=== PATIENT | male | born 1965 | race Caucasian/White ===

== ENCOUNTER 2017-01-01 11:10 | Day surgery (SDC) | payer OTHER ==
[~2017-01-01 11:10] MED LIST: RINGERS SOLUTION,LACTATED 1,000 ML IV PRN
--- OUTSIDE RECORDS SUMMARY | 2017-01-01 11:14 | XMS REPORT | Continuity of Care Document ---
:1965 Author Organization [facility] ([facility]) Address [address] [place] [address] Phone [phone] Care Team Providers Name Role Phone Kai Garcia Primary Care Provider [phone] Source Comments This disclosure is being made pursuant to the Care Everywhere program, applicable federal and state laws, and may not contain all informaitonavailable regarding this patient.[facility] ([facility]) Active Allergies and Adverse Reactions No Active Allergies Current Medications Not on file Active Problems Problem Noted Date Migraine without aura, without mention of intractable migraine without 2000 mention of status migrainosus Social History Tobacco Use Types Packs/Day Years Used Date Never Assessed Last Filed Vital Signs Vital Sign Reading Time Taken Blood Pressure - - Pulse - - Temperature - - Respiratory Rate - - Height 1.76 m (5' 9.29") 05/09/2001 3:24 PM CDT Weight 96.398 kg (212 lb 8.3 oz) 05/09/2001 3:24 PM CDT Body Mass Index 31.12 05/09/2001 3:24 PM CDT Oxygen Saturation - - Plan of Care Health Maintenance Due Date Last Done Comments Hepatitis B Vaccine (1 of 3 - Primary Series) 1965 Tdap Vaccine 1977 Lipid Disorder Screening 1984 MMR Vaccine 1984 Td Vaccine 1984 Influenza Vaccine: Seasonal (#1) 06/05/2016 Colonoscopy 08/22/2016 Prostate Cancer Screening 2016 Results from Last 3 Months Not on file
[2017-01-01] MEDS ORDERED: RINGERS SOLUTION,LACTATED 1,000 ML IV ONE (11:51)
[2017-01-01] MEDS ORDERED: KETOROLAC TROMETHAMINE 30 MG/ML VIAL IV ONE (12:15)
[2017-01-01 14:08] VITALS: BP 132/84
--- NOTE | 2017-01-01 14:25 | OR ---
Operative Report - Dictated Report Narrative: OPERATIVE REPORT DATE OF OPERATION: 01/01/2017 PREOPERATIVE DIAGNOSIS: No prior dedicated colon studies POSTOPERATIVE DIAGNOSIS: 4 mm rectal polyp (pathology pending) OPERATION: Colonoscopy with hot biopsy forceps polypectomy in the rectum SURGEON: Donato Negron MD ANESTHESIA: ANIYA Ann CRNA INDICATIONS FOR PROCEDURE: The patient is a 51-year-old male referred for initial colon screening by Dr. Garcia. There is no family history of colon cancer. The patient is currently asymptomatic FINDINGS: 4 mm rectal polyp (pathology pending). Otherwise normal colonoscopy to the cecum NARRATIVE OF PROCEDURE: The patient was identified in the holding area, and prior to the administration of anesthetic, a multidisciplinary timeout was observed. With the patient in the left lateral position and after the administration of intravenous sedation, the perineum was inspected. There was no evidence of pilonidal disease or skin breakdown. The external appearance of the anus was normal. Sphincter tone was good. The flexible fiberoptic colonoscope was inserted into the rectum which was insufflated with air. There was a 4 mm rectal polyp. This was biopsied and then thoroughly destroyed with electrocautery. The site was seen to be complete and hemostatic. The rectal mucosa and submucosal vascular pattern otherwise appeared normal, the prep was seen to be complete. The scope was advanced through the sigmoid colon, up the descending colon, and around the splenic flexure where the triangular haustral architecture of the transverse colon was seen. The scope was advanced across the transverse colon, around the hepatic flexure to the cecum, where the confluence of tenia and the ileocecal valve were identified. The mucosa at this level appeared normal. The scope was then slowly withdrawn in a circular fashion so that all aspects of colonic mucosa were inspected. The colon was normal in course and caliber. The haustral architecture appeared well preserved throughout with no evidence of external compression. The mucosa and submucosal vascular pattern appeared normal, specifically there was no gross evidence to suggest colitis or inflammatory bowel disease and no AV malformations were seen. No diverticular openings were demonstrated. Aside from the polyp in the rectum, no other polyps were encountered. The scope was gradually withdrawn to the level of the rectum. As much insufflated air as possible was removed. The scope was withdrawn from the patient and the procedure terminated. The patient tolerated the anesthetic and procedure well without complication and was transferred back to the ambulatory surgery area awake and in stable condition. The patient remained stable throughout a period of postoperative observation. He denied abdominal discomfort, was able to tolerate by mouth intake, and was up without assistance. I shared the operative findings with the patient and he was given copies of the photographs which appear in the medical record. He was discharged home with instructions not to engage in hazardous activity today, but may resume normal activity tomorrow, and advance diet as tolerated. He is to continue those medications as listed in the history and physical exam. I made arrangements to contact him with the biopsy reports and will make additional recommendations for treatment and follow-up based upon those results. Reviewed and electronically signed
== END 2017-01-01 11:11 | disposition home or self-care (01) ==
LOC: AMB 11:10
PROVIDERS: ATTEND Surgery
PROC: 0DBP8ZX Excision of Rectum, Via Natural or Artificial Opening Endoscopic, Diagnostic (ICD-10-PCS; principal; 2017-01-01 13:30)
DX: Z12.11 Encounter for screening for malignant neoplasm of colon (principal); D12.8 Benign neoplasm of rectum; K21.9 Gastro-esophageal reflux disease without esophagitis; E78.5 Hyperlipidemia, unspecified; Z68.41 Body mass index [BMI] 40.0-44.9, adult

== ENCOUNTER 2019-11-12 06:59 | Inpatient (IN) ==
--- NOTE | 2019-10-15 12:28 | ANES ---
Anesthesia Pre Procedure Eval HOME MEDICATIONS Metoprolol Succinate [Toprol Xl] 25 mg PO DAILY 12/20/16 [Last Taken Unknown] Gabapentin [Neurontin] 600 mg PO HS 12/29/16 [Last Taken Unknown] rOPINIRole HCL [Requip] 3 mg PO HS 12/29/16 [Last Taken Unknown] atorvastatin 40 mg tablet 40 mg PO HS #30 tab 08/19/19 [Last Taken Unknown] cholecalciferol (vitamin D3) 50,000 unit capsule 50,000 unit PO Q14D #14 cap 08/20/19 [Last Taken Unknown] coenzyme Q10 200 mg capsule 200 mg PO DAILY 09/09/19 [Last Taken Unknown] tramadol 37.5 mg-acetaminophen 325 mg tablet 1 tab PO BID 09/09/19 [Last Taken Unknown] ranitidine HCl 300 mg tablet 300 mg PO HS #30 tab 09/15/19 [Last Taken Unknown] Allergies/Adverse Reactions: Allergies Allergy/AdvReac Type Severity Reaction Status Date / Time No Known Allergies Allergy Verified 10/15/19 08:24 - Planned Procedure Planned Procedure: L Arthroplasty Total Knee Medication List Reviewed:: Yes Allergies Verified: Yes Medical History (Last Reviewed 10/15/19 @ 12:26 by Renato Ann CRNA) Chronic migraine without aura without status migrainosus, not intractable Onset Date: ~2014 Erectile dysfunction due to diseases classified elsewhere Onset Date: ~2014 Excessive daytime sleepiness Onset Date: ~2015 History of gastroesophageal reflux (GERD) Onset Date: Unknown Hyperlipidemia Onset Date: ~2014 Hypogonadotropic hypogonadism Onset Date: ~2014 Left knee pain Onset Date: ~2014 Migraine Onset Date: Unknown Mild concentric left ventricular hypertrophy (LVH) Onset Date: ~2015 trace MR, Echo, [facility], 02/08/16 MARGARETTE (obstructive sleep apnea) Onset Date: ~2015 AHI 71/hr, lowest O2 sat 67%, [facility], 03/08/16. On CPAP RLS (restless legs syndrome) Onset Date: ~2015 Right foot pain Onset Date: ~2014 Sinus tachycardia Onset Date: ~2011 Vitamin D deficiency Onset Date: ~2013 Cerumen impaction Onset Date: ~2014 Surgical History (Last Reviewed 10/15/19 @ 12:26 by Renato Ann CRNA) ANEL Onset Date: 08/25/14 C5-6 History of colonoscopy Onset Date: 01/01/17 Bagan-serrated adenoma. Recheck 3 yrs. Family History (Last Reviewed 10/15/19 @ 12:26 by Renato Ann CRNA) Father Rheumatoid arthritis Irregular heart rhythm bladder issue hyperlipidemia Heart disease Hypercholesterolemia Brother Alive and well Mother Heart issues hyperlipidemia - Family Anesthesia History Family History:: no untoward family reactions to anesthesia - Airway/Neck/Teeth Teeth Condition: intact Neck Exam: limited range of motion Mallampatti Score: 4 Thyromental (T-M) distance: > 6 cm Mandibulo Hyoid distance: > 3 cm - Respiratory Respiratory History: CPAP/BiPAP home use Respiratory Physical: lungs clear Smoking Status: Never smoker Sleep Apnea currently treated: Yes Sleep Apnea by current assessment: Yes - Cardiovascular Cardiac History: hypertension Tolerate Activity: Fair Heart Sounds: S1 & S2, Regular - Gastrointestinal NPO since: instructed npo after mn - Anesthesia Assessment and Plan ASA Class: PS, II Anesthesia Type Plan: Spinal - lt adductor canal block for postop analgesia Planned difficult intubation/equipment available: No
[~2019-11-12 06:59] MED LIST changes: +BUPIVACAINE HCL/EPINEPHRINE 50 ML VIAL IJ ONE; +BUPIVACAINE HCL/PF 10 ML VIAL ONE; +MIDAZOLAM HCL/PF 5 MG/ML VIAL ONE; +MORPHINE SULFATE 15 MG TABLET.SA PO PRN; +PROPOFOL VIAL IV ONE; -RINGERS SOLUTION,LACTATED 1,000 ML IV PRN; +ROPIVACAINE HCL/PF 100 MG, EPINEPHrine 0.2 MG, KETOROLAC TROMETHAMINE 30 MG in NORMAL S... IJ PRN; +TRANEXAMIC ACID 1,000 MG in NORMAL SALINE 100 ML IV PRN; +ceFAZolin SODIUM 1 GM VIAL IV PRN
[2019-11-12] MEDS ORDERED: ceFAZolin SODIUM 1 GM VIAL ONE (07:06)
[2019-11-12] MEDS ORDERED: ISOPROPYL ALCOHOL 480 APPL BTL MC ONE (07:08)
[2019-11-12] MEDS: RINGER'S SOLUTION,LACTATED 1,000 ML IV PRN ×4 (07:51→11:46)
[2019-11-12] MEDS ORDERED: ONDANSETRON HCL/PF 2 MG/ML VIAL ONE (09:58)
[2019-11-12] MEDS ORDERED: diphenhydrAMINE HCL 50 MG/ML VIAL IV PRN (10:05)
[2019-11-12] MEDS ORDERED: ACETAMINOPHEN 500 MG TABLET PO PRN (10:05)
[2019-11-12] MEDS ORDERED: MAGNESIUM HYDROXIDE 30 ML UDC PO PRN (10:05)
[2019-11-12] MEDS ORDERED: ONDANSETRON HCL/PF 2 MG/ML VIAL IV PRN (10:05)
[2019-11-12] MEDS ORDERED: DEXTROSE 5%-LACTATED RINGERS 1,000 ML IV PRN (10:05)
[2019-11-12] MEDS ORDERED: MAG HYDROX/ALUMINUM HYD/SIMETH 30 ML UDC PO PRN (10:05)
[2019-11-12] MEDS ORDERED: ZOLPIDEM TARTRATE 5 MG TABLET PO PRN (10:05)
--- NOTE | 2019-11-12 10:09 | OR ---
Operative Report - Dictated Report Narrative: Date: 11/12/2019 Preoperative diagnosis: Left knee degenerative joint disease. Postoperative diagnosis: Left knee degenerative joint disease. Procedure: Left total knee arthroplasty. Surgeon: Luis Marie M.D. Explosive Ordnance Disposal Technician: Isaak Magdaleno PA-C (provided and essential set of skilled, educated hands that assisted with transfer, positioning, prepping, draping, manipulation, retraction, placement of jigs, injection, insertion of implants, irrigation, closure wounds, and dressings all of which could not be performed by the available surgical crew) Anesthesia: Spinal with regional block and local periarticular joint injection. Complications: None Specimens: Bone. Estimated blood loss: Minimal. Tourniquet time: 90 Minutes at 325 millimeters of mercury. Retained implants: Depuy Attune size 6 left lugged cemented posterior stabilized femoral component. Size 6 fixed-bearing cemented tibial platform. 6 by 6 millimeter posterior stabilized cross-linked tibial insert. 38 millimeter medialized patella button. Indications: Mr. Jackson is a 54-year-old gentleman who has had longstanding left knee pain and arthrosis. This patient was followed in my clinic for period of time with significant complaints of left knee pain consistent with arthritic changes. He had failed conservative measures including, but not limited to, activity modification, passage of time, medications, and other conservative measures. Patient wished to proceed with surgical treatment. The risks, benefits, and alternatives were discussed in clinic. The risks of , blood clots, bleeding, infection, nerve/tendon blood vessel/ injury, malposition of components, intraoperative fracture, postoperative limited range of motion, persistent pain, failure of components, and need for additional procedures. Patient wished to proceed consent was obtained after answering all questions. Procedure: After marking the correct extremity on the floor, the patient was taken to the operating room. A timeout was performed. IV antibiotics consisting of Ancef were administered prior to the procedure. A regional followed by spinal anesthetic was induced by anesthesia, per my request, on the operative table with all bony prominences well-padded. Pak catheter was placed, and a bump was placed under the operative side buttock. SCDs and NICHOLAS hose were utilized on the nonoperative leg. A well-padded tourniquet was applied to the operative thigh. The operative leg was then pre-scrubbed with alcohol, prepped, and draped in a standard sterile fashion. After exsanguinating the extremity with an Esmarch bandage, the tourniquet was inflated. After marking out the anterior knee for standard incision centered over the patella, the skin was incised and dissected down to the joint retinaculum. The joint retinaculum was marked out as well as the horizontal axis of the patella, and a standard medial parapatellar arthrotomy was then made. The most proximal aspect of the quadriceps tendon and the patella tendon insertion were protected from release. A partial synovectomy was performed as well as a resection of the infrapatellar fat pad. The distal femoral fat pad proximal to the trochlea was also resected using cautery. The soft tissues were elevated off the medial aspect of the proximal tibia using a Mueller elevator ensuring that we did not transect the medial collateral ligament. Upon initial evaluation range of motion was approximately 5 degrees to 130 degrees of flexion. There were signs of advanced arthrosis in the medial and patellofemoral greater than lateral joint spaces. There were large marginal osteophytes which were removed with a rongeur. The knee was hyperflexed and the patella was tucked laterally. Protecting the surrounding soft tissues with Homans, an entry drill was placed down the femoral canal using Whitesides line for guidance into the entry point. The intramedullary femoral alignment dae was utilized in order to cut the distal femur in 5 degrees of valgus resecting 10 millimeters of bone. Next the distal femur was sized to a size 6. A posterior referencing guide was utilized to place the distal femoral cutting block in 3 degrees of external rotation. This was pinned into place. The rotation was confirmed both visually and based on anatomic landmarks. The 4 in 1 cutting jig of the appropriate size was utilized in order to make all bony cuts. The angle wing was used to ensure no notching. Retractors were utilized in order to protect surrounding soft tissues. This cut did not result in any excessive notching. We then cut the box centered over the distal femur. This allowed for resection of the anterior and posterior cruciate ligaments. I then turned my attention to the preparation of the tibia. Using an extra medullary tibial alignment dae, 3 millimeters of bone was resected off the medial articular surface. This was made perpendicular to the mechanical axis of the joint with the alignment dae centered over the ankle mortise. The alignment dae was checked and was noted to be parallel to the mechanical axis, centered over the medial one third of the tibial tubercle, paralleling the anterior surface of the tibia. We then turned our attention to the remaining meniscus and soft tissues. These were removed while protecting the surrounding ligaments and soft tissues. The marginal osteophytes off the anterior, posterior, medial, lateral aspects of the femur and tibia were removed. The tibia was sized out to a size 6. Next the tibia was drilled and punched in an externally rotated position. Next the trial femur and a series of tibial inserts were utilized in order to allow for full extension and maximal flexion. It was found that a 6 millimeter insert gave the best range of motion and stability at multiple flexion points as well as at full extension there was less than 2 mm of gapping both medially and laterally. There is minimal anterior translation with the knee at 90 degrees of flexion and no signs of being able to dislocate the knee. The patella was then prepared. The initial thickness was 23 millimeters. This was reamed down to 13 millimeters parallel to the anterior surface of the patella. It was sized out to a size 38 medialized patella button. This was then drilled and trialed. Without any medial restraint the patella tracked appropriately and did not sublux or dislocate. At this point, it was felt these were the appropriate sized implants, and all trials were removed. The standard periarticular joint injection consisting of ropivacaine, Toradol, and epinephrine were injected into the periarticular joint tissues. The bony surfaces were thoroughly irrigated with a pulsatile-suction saline irrigation device. A bone plug from the prior resected anterior chamfer cut was placed into the drill hole at the distal femur. The bony surfaces were then dried in preparation for placement of the implants. The cement was vacuum mixed per the imaging account manager's instructions. The cement was placed on the dry bony surfaces and posterior aspect of the implants. The implants were impacted into place, removing all extruded cement. At this point anesthesia administered tranexamic acid per protocol intravenously. The knee was placed in extension with axial loading with the trial insert while the cement cured. Once the cement cured, all remaining extruded cement was removed. The knee was placed through a range of motion with the trial insert to ensure appropriate range of motion and stability. Final range of motion was approximately 0 to 130 degrees. The knee was again thoroughly irrigated with pulsatile saline lavage. The final polyethylene insert was then impacted into place ensuring no retained soft tissues. The remaining periarticular joint injection was injected. A medium Hemovac drain was placed exiting superior laterally. The knee was then placed over a triangle and the arthrotomy was closed with interrupted #1 Vicryl after thoroughly irrigating the joint. The deep and subcutaneous tissues were closed with interrupted 0 and 3-0 Vicryl respectively. Skin was closed with a running subcutaneous 3-0 Monocryl and Prineo Dermabond dressing. 4 x 4's, Sof-Rol, and a full leg Rishi wrap were applied. All sponge, needle, blade, and instrument counts were correct prior to closing the wounds. Postoperative condition: The patient was awoken and transferred to the postanesthesia care unit in stable condition. Plan is to be admitted to the inpatient medical/surgical floor postoperatively for 24 hours of IV antibiotics, physical therapy, occupational therapy, and medical comanagement. Patient will be weightbearing as tolerated with range of motion as tolerated. DVT prophylaxis will be with SCDs, NICHOLAS hose, and pharmacological anticoagulation. Anticipated hospital stay is approximately 1-3 days.
[2019-11-12] MEDS: oxyCODONE HCL/ACETAMINOPHEN 1 TAB TABLET PO PRN ×3 (11:05→20:14)
[2019-11-12] MEDS: KETOROLAC TROMETHAMINE 15 MG/ML VIAL IV SCH ×3 (11:31→23:21)
[2019-11-12] MEDS: ceFAZolin SODIUM 1 GM in DEXTROSE 5 % IN WATER 100 ML IV SCH ×6 (11:53→23:22)
[2019-11-12] MEDS: MORPHINE SULFATE 4 MG/ML SYRG IV PRN ×4 (12:35→22:10)
--- NOTE | 2019-11-12 12:38 | ANES ---
Post Anesthesia Assessment - Vital Signs Vitals: Last Vital Signs Temp 36.4 C 11/12/19 10:50 Pulse 84 11/12/19 10:50 Resp 15 11/12/19 10:50 BP 127/73 11/12/19 10:50 Pulse Ox 95 11/12/19 10:50 Airway Patency: Normal - Mental Status Level Of Consciousness: Awake - Pain Level Pain Score: 0 - N/V Assessment Nausea/Vomiting Presence: None Dehydration:: No
--- NOTE | 2019-11-12 12:38 | ANES ---
Post Anesthesia Discharge - Transfer of Care Transfer of Care handoff given to nurse: Yes - Discharge from PACU Discharge from PACU when meets criteria: Yes
--- NOTE | 2019-11-12 12:43 | ANES ---
Anesthesia Procedure Note Procedure Note: ANESTHESIA PROCEDURE NOTE Date of procedure: 11/12/2019. Time of procedure: 06 14. Performed by: Arash Ann CRNA Vehicle Safety Inspector: Rae Herrera RN . Preprocedure diagnosis: Left knee DJD. Post procedure diagnosis: Same. Procedure: Ultrasound-guided left adductor canal block. Indications: Post operative analgesia. Findings: Patient was brought to operating room #4 given a spinal anesthetic with sedation. The patient's left inner thigh was prepped with ChloraPrep. Ultrasound utilized to identify the saphenous nerve in the left adductor canal. A 20-gauge 4 inch regional block needle was advanced under ultrasound guidance until tip of needle was placed just lateral to saphenous nerve. 30 mL of 0.25% Marcaine with epinephrine 1-200,000 was injected with adequate spread of local anesthesia noted around the nerve. Regional block needle was removed intact EBL: Minimal. Fluids: N/A. Specimen: N/A. Post procedure condition: The patient tolerated the procedure well. No complications were noted. Thank you for this consultation Arash Ann CRNA
[2019-11-12] MEDS: MORPHINE SULFATE 15 MG TABLET.SA PO SCH (20:15)
[2019-11-12] MEDS: GABAPENTIN 300 MG CAPSULE PO SCH (20:16)
[2019-11-12] MEDS ORDERED: rOPINIRole HCL 1 MG TABLET PO SCH (21:00)
[2019-11-12] MEDS ORDERED: SENNOSIDES/DOCUSATE SODIUM 1 TAB TABLET PO SCH (21:00)
[2019-11-12] MEDS ORDERED: FAMOTIDINE 20 MG TABLET PO SCH (21:00)
[2019-11-12] MEDS ORDERED: ROSUVASTATIN CALCIUM 20 MG TABLET PO SCH (21:00)
[2019-11-13] MEDS: oxyCODONE HCL/ACETAMINOPHEN 1 TAB TABLET PO PRN ×3 (03:27→12:35)
[2019-11-13] MEDS: KETOROLAC TROMETHAMINE 15 MG/ML VIAL IV SCH ×2 (05:20→10:03)
[2019-11-13 06:34] LABS: Hematocrit 37.9 % (42.0-52.0); Hemoglobin 12.5 gm/dL (13.5-18.0); Mean Cell Volume 93.1 fl (78-100); Mean Corpuscular Hemoglobin 30.7 pg (27-31); Mean Platelet Volume 10.9 fl (8-11.3); Platelet Count 169 K/mm3 (150-450); Red Blood Count 4.07 M/mm3 (4.7-6.0); Red Cell Distribution Width 11.8 % (11.5-14.0); White Blood Count 7.8 K/mm3 (4.0-10.5)
[2019-11-13 06:49] LABS: Anion Gap 8.3 mmol/L (6.8-13.8); Carbon Dioxide 29.4 mmol/L (24-32.6); Estimated Creat Clear 88.4; Potassium 3.7 mmol/L (3.4-4.6)
[2019-11-13] MEDS: GABAPENTIN 300 MG CAPSULE PO SCH (08:36)
[2019-11-13] MEDS: MORPHINE SULFATE 15 MG TABLET.SA PO SCH (08:40)
[2019-11-13] MEDS ORDERED: METOPROLOL SUCCINATE 25 MG TABLET.SA PO SCH (09:00)
[2019-11-13] MEDS ORDERED: ENOXAPARIN SODIUM 40 MG/0.4 ML SYRG SC SCH (09:05)
[2019-11-13] MEDS: MORPHINE SULFATE 4 MG/ML SYRG IV PRN (09:54)
--- NOTE | 2019-11-13 12:04 | DS ---
(1) Status post left knee replacement Problem: Acute (2) Reactive airway disease Problem: Acute (3) MARGARETTE on CPAP Problem: Chronic (4) Hyperlipidemia Problem: Chronic Qualifiers: (5) BMI 40.0-44.9, adult Problem: Chronic Hospital Course: Mr. Jackson was admitted to the floor after undergoing left total knee arthroplasty. Tolerated this well. Was admitted to the floor postoperatively for 24 hours of IV antibiotics, pain control, medical comanagement, and occupational and physical therapy. OT and PT were consulted to assist with activities of daily living and ambulation. Was made weightbearing as tolerated with range of motion as tolerated. Pain was initially controlled with IV regimen. This was transitioned to oral once tolerating a by mouth intake. Was resumed on home diet and medications. Had a Pak catheter inserted and the operating room which was discontinued on postoperative day 1. A drain was placed intraoperatively into the knee which was discontinued on postoperative day 1. Lovenox SCD and NCIHOLAS hose were utilized for DVT prophylaxis. Vital signs remained stable to the hospital course. Serial labs were obtained which showed a final hemoglobin of 12.5 grams down from 14.1 g preoperatively. BMP was reviewed and was stable. Physical examination throughout the hospital course showed an extremity that had sensation that was intact to light touch, palpable pulses, a benign wound, motor intact to the toes, ankle, and knee. Knee range of motion was approximately 0 degrees to 60 degrees. Once an oral pain regimen was tolerated and physical therapy goals were met, it was felt that they were stable for discharge to home. Instructions: Continue with weightbearing as tolerated and range of motion as tolerated. It is OK to shower on the wound if it is not draining. If you note any drainage or for comfort you can cover with dry gauze and tape. Change every 2-3 days as needed. Continue with physical therapy. Resume home diet. Report any fever over 101.5 Fahrenheit, uncontrolled pain, increased drainage, foul odor of drainage, new or increased calf pain or shortness of breath, or any other significant complaints. A 325mg dialy aspirin will be started after finishing anticoagulation if not allergic. Continue with NICHOLAS hose on the operative extremity until instructed otherwise. No driving until instructed otherwise. Follow up in approximately 10-14 days. Procedures Performed: see notes below List Procedures: Left total knee arthroplasty Results and Findings: Lab Pending Results 11/13/19 06:05: WBC 7.8, RBC 4.07 L, Hgb 12.5 L, Hct 37.9 L, MCV 93.1, MCH 30.7, MCHC 33.0, RDW 11.8, Plt Count 169, MPV 10.9 11/13/19 06:05: Sodium 137, Plasma Sodium 138, Potassium 3.7, Chloride 103, Carbon Dioxide 29.4, Anion Gap 8.3, BUN 12, Creatinine 1.00, Est GFR (Non-Af Amer) 83, BUN/Creatinine Ratio 12.0, Random Glucose 141 H, Calcium 8.0 Discharge Location: Home Disposition: Home self-care Condition: Good Discharge Activity: Activity as tolerated, Weight bearing, Other - With wheeled walker Discharge Diet: Low fat/chol Referrals: Luis Marie MD [Staff Physician] - 12/02/19 9:00 am Problem Oriented Discharge Instructions to Patient/Family: Total Knee Replacement, Care After, [id number] Additional Patient Instructions (free text): [facility] Physical Therapy appointment 11/14/2019 at 10:30a.m. Follow up in the Orthopedic office with Dr. Marie 12/02/2019 at 9:00a.m. Prescriptions (Any new or edited meds): Enoxaparin Sodium [Lovenox] 40 mg SC Q24H #7 disp.syrin Transmission Status: Pending to [facility] #[id number] Morphine Sulfate [Ms Contin] 15 mg PO Q8H #30 tablet.sa Transmission Status: Received by [facility] #[id number] oxyCODONE HCL/ACETAMINOPHEN [Percocet 5 MG/325 MG] 2 tab PO Q4H PRN #60 tab PRN Reason: Moderate Pain (Pain Scale 4-6) Transmission Status: Received by [facility] #[id number] Sennosides/Docusate Sodium [Senokot-S] 2 tab PO HS #60 tab Transmission Status: Pending to [facility] #[id number] Complete Home Medications List: Complete Home Medication List: Metoprolol Succinate [Toprol Xl] 25 mg PO DAILY 12/20/16 rOPINIRole HCL [Requip] 3 mg PO HS 12/29/16 atorvastatin 40 mg tablet 40 mg PO HS #30 tab 08/19/19 cholecalciferol (vitamin D3) 50,000 unit capsule 50,000 unit PO Q14D #14 cap 08/20/19 coenzyme Q10 200 mg capsule 200 mg PO DAILY 09/09/19 tramadol 37.5 mg-acetaminophen 325 mg tablet 1 tab PO BID 09/09/19 ranitidine HCl 300 mg tablet 300 mg PO HS #30 tab 09/15/19 gabapentin 300 mg capsule 900 mg PO BID cap 11/03/19 Enoxaparin Sodium [Lovenox] 40 mg SC Q24H #7 disp.syrin 11/13/19 Morphine Sulfate [Ms Contin] 15 mg PO Q8H #30 tablet.sa 11/13/19 Sennosides/Docusate Sodium [Senokot-S] 2 tab PO HS #60 tab 11/13/19 oxyCODONE HCL/ACETAMINOPHEN [Percocet 5 MG/325 MG] 2 tab PO Q4H PRN #60 tab 11/13/19 Amb Orders for Discharge: PT Evaluation and Treatment* Facility: [facility], Location: Rehabilitation Services
[2019-11-13 14:39] VITALS: BP 128/69
[2019-11-23] MEDS ORDERED: ERGOCALCIFEROL 50000 UNIT TABLET PO SCH (09:00)
== END 2019-11-13 15:00 | disposition home or self-care (01) | DRG 470 ==
LOC: MS 06:59 → EDSTATUS 08:30
PROVIDERS: ADMIT Orthopaedic Surgery; ATTEND Orthopaedic Surgery
DX: J45.909 Unspecified asthma, uncomplicated; G47.33 Obstructive sleep apnea (adult) (pediatric); Z68.41 Body mass index [BMI] 40.0-44.9, adult; M17.12 Unilateral primary osteoarthritis, left knee; E66.01 Morbid (severe) obesity due to excess calories; K21.9 Gastro-esophageal reflux disease without esophagitis
CPT/HCPCS: 36415; 73560; 80048; 85027; 94660; 97110; 97116; 97161; 97165; 97535; J2405